=== PATIENT | male | born 1990 | race Two or more races ===

== ENCOUNTER 2020-07-15 10:40 | Emergency (ER) | payer SELFPAY ==
[~2020-07-15] VITALS: Ht 180.3 cm; Wt 86.2 kg
[2020-07-15] MEDS: SODIUM CHLORIDE 0.9% 1,000 ML IV ONE ×2 (11:00→12:49)
[2020-07-15] MEDS: MORPHINE SULFATE 4 MG/ML SYR/VIAL IV ONE ×2 (11:15→11:34)
[2020-07-15 11:24] LABS: Basophils # (auto) 0 10 ^3/uL (0-0.2); Basophils % (auto) 0.2 % (0.0-2.0); Eosinophils # (auto) 0 10 ^3/uL (0-0.8); Eosinophils % (auto) 0.1 % (0.0-7.0); Hematocrit 47.9 % (41.0-53.0); Hemoglobin 16.2 g/dL (13.5-17.5); Lymphocytes # (auto) 1.3 10 ^3/uL (0.4-5.4); Lymphocytes % (auto) 9.7 % (10.0-50.0); Mean Corpuscular Hemoglobin 31.3 pg (28.0-32.0); Mean Corpuscular Hgb Conc. 33.7 g/dL (32.0-36.0); Mean Corpuscular Volume 92.9 fL (80.0-100.0); Monocytes # (auto) 0.3 10 ^3/uL (0-1.3); Monocytes % (auto) 2.6 % (0.0-12.0); Neutrophils # (auto) 11.5 10 ^3/uL (1.6-8.6); Neutrophils % (auto) 87.4 % (37.0-80.0); Platelet Count (auto) 178 10^3/uL (140-450); Red Blood Cells 5.16 10^6/uL (4.5-5.90); Red Cell Distribution Width 13.2 % (11.8-14.3); White Blood Cell 13.1 10^3/uL (4.4-10.8)
[2020-07-15] MEDS: PROCHLORPERAZINE EDISYLATE 5 MG/ML 2ML VIAL IV ONE ×2 (11:34→12:49)
[2020-07-15 11:45] LABS: Albumin 4.5 g/dL (3.4-5.0); Anion Gap 6 (5-15); Blood Urea Nitrogen 9 mg/dL (7-18); Calcium 9.3 mg/dL (8.5-10.1); Carbon Dioxide 26 mmol/L (21-32); Chloride 107 mmol/L (98-107); Glucose 138 mg/dL (74-106); Lipase 85 U/L (73-393); Potassium 3.9 mmol/L (3.5-5.1); Sodium 139 mmol/L (136-145)
[2020-07-15 11:53] LABS: Alanine Aminotransferase 26 U/L (16-61); Alkaline Phosphatase 65 U/L (45-117); Aspartate Aminotransferase 20 U/L (15-37); Bilirubin, Total 0.5 mg/dL (0.2-1.0); GFR African American 127 mL/min; GFR Non-African American 105 mL/min; Total Protein 7.7 g/dL (6.4-8.2)
[2020-07-15] MEDS ORDERED: PROMETHAZINE HCL 25 MG/ML 1ML IV ONE (12:45)
[2020-07-15 13:35] VITALS: BP 116/66
== END 2020-07-15 13:35 | disposition home or self-care (01) ==
LOC: ER 10:40
DX: K29.00 Acute gastritis without bleeding (principal); F12.99 Cannabis use, unspecified with unspecified cannabis-induced disorder; R73.9 Hyperglycemia, unspecified; E86.0 Dehydration; R11.10 Vomiting, unspecified
CPT/HCPCS: 36415; 71045; 74176; 80053; 83690; 84484; 85025; 96361; 96374; 96375; 99285; J0780; J2270; J2550; J7030

== ENCOUNTER 2021-04-06 22:32 | Emergency (ER) | payer MEDICAID, OTHER ==
[~2021-04-06] VITALS: Ht 180.3 cm; Wt 86.2 kg
[2021-04-06 23:33] LABS: Eosinophils # (auto) 0.1 10 ^3/uL (0-0.8); Hemoglobin 17.8 g/dL (13.5-17.5); Monocytes # (auto) 0.9 10 ^3/uL (0-1.3); Nucleated Red Blood Cells % 0.1 %
[2021-04-06 23:34] LABS: Basophils # (auto) 0.1 10 ^3/uL (0-0.2); Basophils % (auto) 0.5 % (0.0-2.0); Eosinophils % (auto) 0.8 % (0.0-7.0); Hematocrit 49.9 % (41.0-53.0); Lymphocytes % (auto) 29.1 % (10.0-50.0); Mean Corpuscular Hemoglobin 32.2 pg (28.0-32.0); Mean Corpuscular Hgb Conc. 35.8 g/dL (32.0-36.0); Mean Corpuscular Volume 90.1 fL (80.0-100.0); Monocytes % (auto) 8.6 % (0.0-12.0); Neutrophils # (auto) 6.4 10 ^3/uL (1.6-8.6); Red Blood Cells 5.54 10^6/uL (4.5-5.90); Red Cell Distribution Width 13.2 % (11.8-14.3); White Blood Cell 10.5 10^3/uL (4.4-10.8)
[2021-04-06 23:57] LABS: Albumin 4.6 g/dL (3.4-5.0); Calcium 9.5 mg/dL (8.5-10.1); Potassium 3.3 mmol/L (3.5-5.1)
[2021-04-07 00:01] LABS: Total Protein 8.2 g/dL (6.4-8.2)
[2021-04-07] MEDS ORDERED: ALUM & MAG HYDROX-SIMETH LIQ(MAALOX) 30 ML PO ONE (00:30)
[2021-04-07] MEDS ORDERED: DONNATAL 5ml ORAL Elix (BELLADONNA ALK-PHENOBARB) PO ONE (00:30)
[2021-04-07] MEDS ORDERED: SODIUM CHLORIDE 0.9% 1,000 ML IV ONE (00:30)
[2021-04-07] MEDS ORDERED: LIDOCAINE VISCOUS 2% 15ML UD PO ONE (00:30)
[2021-04-07] MEDS ORDERED: POTASSIUM CHL 20 Meq TABLET PO ONE (00:45)
[2021-04-07 01:25] VITALS: BP 122/77
== END 2021-04-07 02:06 | disposition home or self-care (01) ==
LOC: ER 22:32
DX: K29.70 Gastritis, unspecified, without bleeding (principal); R11.2 Nausea with vomiting, unspecified; K21.9 Gastro-esophageal reflux disease without esophagitis
CPT/HCPCS: 36415; 80053; 83690; 84484; 85025; 93005; 96360; 99284; J7030; 85049

== ENCOUNTER 2021-04-10 20:50 | Emergency (ER) | payer MEDICAID, OTHER ==
[~2021-04-10] VITALS: Ht 180.3 cm; Wt 86.2 kg
[2021-04-10 22:27] LABS: Basophils # (auto) 0.1 10 ^3/uL (0-0.2); Basophils % (auto) 0.5 % (0.0-2.0); Eosinophils # (auto) 0 10 ^3/uL (0-0.8); Eosinophils % (auto) 0.2 % (0.0-7.0); Hematocrit 48.7 % (41.0-53.0); Hemoglobin 17.1 g/dL (13.5-17.5); Lymphocytes % (auto) 13.3 % (10.0-50.0); Mean Corpuscular Hgb Conc. 35.2 g/dL (32.0-36.0); Mean Corpuscular Volume 90.8 fL (80.0-100.0); Monocytes # (auto) 0.9 10 ^3/uL (0-1.3); Monocytes % (auto) 6.1 % (0.0-12.0); Neutrophils % (auto) 79.9 % (37.0-80.0); Nucleated Red Blood Cells % 0.1 %; Red Blood Cells 5.36 10^6/uL (4.5-5.90); Red Cell Distribution Width 13.2 % (11.8-14.3)
[2021-04-10 22:40] LABS: Alanine Aminotransferase 33 U/L (16-61); Albumin 4.3 g/dL (3.4-5.0); Anion Gap 7 (5-15); Aspartate Aminotransferase 18 U/L (15-37); BUN/Creatinine Ratio 8.2; Blood Urea Nitrogen 8 mg/dL (7-18); Calcium 9.3 mg/dL (8.5-10.1); Carbon Dioxide 28 mmol/L (21-32); Chloride 102 mmol/L (98-107); GFR African American 114 mL/min; GFR Non-African American 94 mL/min; Glucose 113 mg/dL (74-106); Potassium 4.8 mmol/L (3.5-5.1); Sodium 137 mmol/L (136-145)
[2021-04-10 22:45] LABS: Alkaline Phosphatase 69 U/L (45-117); Bilirubin, Total 0.7 mg/dL (0.2-1.0); Total Protein 7.9 g/dL (6.4-8.2)
[2021-04-10] MEDS ORDERED: SODIUM CHLORIDE 0.9% 1,000 ML IV ONE (23:45)
[2021-04-10] MEDS ORDERED: MORPHINE SULF INJ 2 MG/ML SYRINGE 1ML IV ONE (23:45)
[2021-04-10] MEDS ORDERED: ONDANSETRON HCL 4 MG/2 ML VIAL IV ONE (23:45)
[2021-04-10] MEDS ORDERED: PANTOPRAZOLE 40 MG/10 ML VIAL INJ IV ONE (23:45)
[2021-04-11] MEDS ORDERED: metroNIDAZOLE 500MG/100ML 100 ML IV ONE (01:30)
[2021-04-11] MEDS ORDERED: cefTRIAXone 1GM/50ML D5W 50 ML IV ONE (01:30)
[2021-04-11 02:00] VITALS: BP 106/63
== END 2021-04-11 03:25 | disposition home or self-care (01) ==
LOC: ER 20:54
DX: K52.9 Noninfective gastroenteritis and colitis, unspecified (principal); K21.9 Gastro-esophageal reflux disease without esophagitis
CPT/HCPCS: 36415; 71045; 74176; 80053; 83880; 84484; 85025; 85049; 93005; 96361; 96365; 96368; 96375; 99285; C9113; J0696; J2270; J2405; J3490

== ENCOUNTER 2021-05-29 05:48 | Emergency (ER) | payer MEDICAID, OTHER ==
[~2021-05-29] VITALS: Ht 180.3 cm; Wt 81.6 kg
[2021-05-29 05:50] VITALS: BP 124/80
[2021-05-29] MEDS ORDERED: MORPHINE SULFATE 4 MG/ML SYR/VIAL IV ONE (07:45)
[2021-05-29] MEDS ORDERED: PROCHLORPERAZINE EDISYLATE 5 MG/ML 2ML VIAL IV ONE (07:45)
[2021-05-29] MEDS ORDERED: SODIUM CHLORIDE 0.9% 1,000 ML IV ONE ×2 (07:45)
[2021-05-29 08:06] LABS: Albumin 4.6 g/dL (3.4-5.0); Calcium 10.2 mg/dL (8.5-10.1)
[2021-05-29 08:09] LABS: Basophils # (auto) 0 10 ^3/uL (0-0.2); Basophils % (auto) 0.3 % (0.0-2.0); Bilirubin, Total 0.8 mg/dL (0.2-1.0); Eosinophils # (auto) 0 10 ^3/uL (0-0.8); Eosinophils % (auto) 0.1 % (0.0-7.0); Hematocrit 47.8 % (41.0-53.0); Hemoglobin 17.1 g/dL (13.5-17.5); Lymphocytes # (auto) 2.2 10 ^3/uL (0.4-5.4); Mean Corpuscular Hemoglobin 32.1 pg (28.0-32.0); Mean Corpuscular Hgb Conc. 35.7 g/dL (32.0-36.0); Monocytes # (auto) 0.8 10 ^3/uL (0-1.3); Monocytes % (auto) 6.4 % (0.0-12.0); Neutrophils # (auto) 9.6 10 ^3/uL (1.6-8.6); Neutrophils % (auto) 76.2 % (37.0-80.0); Nucleated Red Blood Cells % 0.1 %; Red Blood Cells 5.31 10^6/uL (4.5-5.90); Red Cell Distribution Width 13.1 % (11.8-14.3); Total Protein 8.3 g/dL (6.4-8.2); White Blood Cell 12.6 10^3/uL (4.4-10.8)
== END 2021-05-29 13:47 | disposition left against medical advice (07) ==
LOC: ER 05:50
DX: R10.13 Epigastric pain (principal); R11.2 Nausea with vomiting, unspecified; K21.9 Gastro-esophageal reflux disease without esophagitis
CPT/HCPCS: 36415; 74176; 80053; 83605; 83690; 83735; 85025; 87040

== ENCOUNTER 2023-09-22 14:00 | Inpatient (IN) | payer MEDICAID ==
[~2023-09-22] VITALS: Ht 180.3 cm; Wt 76.8 kg
[2023-09-22] MEDS ORDERED: SODIUM CHLORIDE 0.9% 1,000 ML IVB ONE (15:00)
[2023-09-22] MEDS ORDERED: ONDANSETRON HCL 4 MG/2 ML VIAL IV ONE (15:00)
[2023-09-22] MEDS ORDERED: PANTOPRAZOLE 80 MG in SODIUM CHL 0.9% 100 ML IV ONE (15:00)
[2023-09-22] MEDS ORDERED: MORPHINE SULFATE 4 MG/ML SYR/VIAL IV ONE (15:00)
[2023-09-22] MEDS ORDERED: PANTOPRAZOLE 40mg/50ML NS AE 50 ML IV ONE (15:00)
[2023-09-22 15:30] LABS: Basophils # (auto) 0 10 ^3/uL (0-0.2); Basophils % (auto) 0.2 % (0.0-2.0); Eosinophils # (auto) 0 10 ^3/uL (0-0.8); Hematocrit 46.2 % (41.0-53.0); Hemoglobin 15.6 g/dL (13.5-17.5); Lymphocytes # (auto) 0.7 10 ^3/uL (0.4-5.4); Lymphocytes % (auto) 7.5 % (10.0-50.0); Mean Corpuscular Hemoglobin 31.2 pg (28.0-32.0); Mean Corpuscular Hgb Conc. 33.8 g/dL (32.0-36.0); Mean Corpuscular Volume 92.4 fL (80.0-100.0); Monocytes # (auto) 0.1 10 ^3/uL (0-1.3); Monocytes % (auto) 1.6 % (0.0-12.0); Neutrophils # (auto) 8.3 10 ^3/uL (1.6-8.6); Neutrophils % (auto) 90.7 % (37.0-80.0); Nucleated Red Blood Cells % 0.1 %; Red Cell Distribution Width 13.5 % (11.8-14.3); White Blood Cell 9.2 10^3/uL (4.4-10.8)
[2023-09-22 15:50] VITALS: PULSE 60; RESP 12; O2SAT 97
[2023-09-22 15:50] LABS: Alanine Aminotransferase 13 U/L (7-40); Alkaline Phosphatase 54 U/L (46-116); Anion Gap 10 (5-15); Aspartate Aminotransferase 11 U/L (13-40); Bilirubin, Total 0.6 mg/dL (0.2-1.0); Blood Urea Nitrogen 6 mg/dL (9-23); Calcium 9.8 mg/dL (8.7-10.4); Carbon Dioxide 25 mmol/L (20-30); Chloride 106 mmol/L (98-107); Glucose 130 mg/dL (74-106); Lipase 28 U/L (12-53); Potassium 3.6 mmol/L (3.5-5.1); Sodium 141 mmol/L (136-145); Total Protein 7.4 g/dL (5.7-8.2)
[2023-09-22 15:51] LABS: Blood Alcohol < 3.0 mg/dL (<10); Magnesium 1.9 mg/dL (1.6-2.6)
[2023-09-22 15:53] LABS: INR 1.03 (0.9-1.15); Partial Thromboplastin Time 27.1 SEC (24.5-34.5); Prothrombin Time 10.8 sec (9.3-11.8)
[2023-09-22] MEDS ORDERED: IOHEXOL 300 MG/ML 100ML BOTTLE IJ ONE (17:42)
[2023-09-22] MEDS ORDERED: MORPHINE SULFATE INJ 2 MG/ml SYRG IV PRN (18:30)
[2023-09-22] MEDS: PANTOPRAZOLE 40mg/50ML NS AE 50 ML IV SCH ×2 (18:30→23:18)
[2023-09-22] MEDS ORDERED: DOCUSATE SOD 100 MG CAP PO PRN (18:30)
[2023-09-22] MEDS ORDERED: ONDANSETRON HCL 4 MG/2 ML VIAL IV PRN (18:30)
[2023-09-22] MEDS: SODIUM CHLORIDE 0.9% 1,000 ML IV SCH (18:57)
[2023-09-22 19:06] LABS: Amphetamine Screen, Urine Neg (NEGATIVE); Barbiturate Scree,Urine Neg (NEGATIVE); Benzodiazephine Screen, Urine Neg (NEGATIVE); Cannabinoid Screen, Urine Pos (NEGATIVE); Cocaine Screen, Urine Neg (NEGATIVE); Opiate Scree,Urine Neg (NEGATIVE); Phencyclidine Screen, Urine Neg (NEGATIVE)
[2023-09-22 19:14] LABS: Urine Amorphous Crystal FEW /hpf (None Seen); Urine Bacteria NONE SEEN /hpf (None Seen); Urine Blood Negative /uL (Negative); Urine Clarity HAZY (Clear); Urine Color Yellow (Yellow); Urine Mucus FEW (None Seen); Urine Protein, UAD 1+ (Negative); Urine Specific Gravity 1.023 (1.001-1.035); Urine Urobilinogen Normal (Negative); Urine WBC 4 /hpf (0 - 3); Urine pH 8.5 (5.0-8.0)
[2023-09-22 19:30] VITALS: PULSE 55; RESP 14; O2SAT 100
[2023-09-22 22:47] VITALS: BP 130/76; PULSE 54; RESP 18; TEMP 99.4; O2SAT 99
[2023-09-22 22:54] LABS: Hematocrit 42.9 % (41.0-53.0); Hemoglobin 14.4 g/dL (13.5-17.5)
[2023-09-23] VITALS (7 sets, daily range): BP systolic 104–130; BP diastolic 64–76; PULSE 53–58; RESP 17–20; TEMP 97.4–99.4; O2SAT 96–100
[2023-09-23] MEDS: SODIUM CHLORIDE 0.9% 1,000 ML IV SCH ×2 (02:52→12:00)
[2023-09-23] MEDS: PANTOPRAZOLE 40mg/50ML NS AE 50 ML IV SCH ×3 (03:00→14:30)
[2023-09-23 06:41] LABS: Basophils # (auto) 0 10 ^3/uL (0-0.2); Basophils % (auto) 0.1 % (0.0-2.0); Eosinophils # (auto) 0 10 ^3/uL (0-0.8); Eosinophils % (auto) 0.1 % (0.0-7.0); Hematocrit 43.3 % (41.0-53.0); Hemoglobin 14.6 g/dL (13.5-17.5); Lymphocytes # (auto) 1.9 10 ^3/uL (0.4-5.4); Lymphocytes % (auto) 20.9 % (10.0-50.0); Mean Corpuscular Hemoglobin 31.4 pg (28.0-32.0); Mean Corpuscular Hgb Conc. 33.7 g/dL (32.0-36.0); Mean Corpuscular Volume 93.4 fL (80.0-100.0); Monocytes # (auto) 0.6 10 ^3/uL (0-1.3); Monocytes % (auto) 7.1 % (0.0-12.0); Neutrophils # (auto) 6.5 10 ^3/uL (1.6-8.6); Neutrophils % (auto) 71.8 % (37.0-80.0); Nucleated Red Blood Cells % 0.1 %; Red Blood Cells 4.63 10^6/uL (4.5-5.90); Red Cell Distribution Width 13.8 % (11.8-14.3); White Blood Cell 9.1 10^3/uL (4.4-10.8)
[2023-09-23 08:55] LABS: Albumin 4.3 g/dL (3.2-4.8); Alkaline Phosphatase 45 U/L (46-116); Anion Gap 11 (5-15); Aspartate Aminotransferase 8 U/L (13-40); BUN/Creatinine Ratio 8.5 (10.0-20.0); Bilirubin, Total 0.7 mg/dL (0.2-1.0); Blood Urea Nitrogen 6 mg/dL (9-23); Carbon Dioxide 20 mmol/L (20-30); Chloride 109 mmol/L (98-107); Glucose 107 mg/dL (74-106); Potassium 3.6 mmol/L (3.5-5.1); Sodium 140 mmol/L (136-145); Total Protein 6.4 g/dL (5.7-8.2)
[2023-09-23 09:11] LABS: Alanine Aminotransferase < 9 U/L (7-40)
[2023-09-23 11:58] LABS: Hematocrit 41.8 % (41.0-53.0); Hemoglobin 14.2 g/dL (13.5-17.5)
[2023-09-23] MEDS ORDERED: cefTRIAXone 1GM/50ML D5W 50 ML IV ONE (16:30)
[2023-09-23] MEDS: SUCRALFATE 1 GM/10 ML ORAL SUSP PO SCH ×2 (16:50→21:26)
[2023-09-23] MEDS: PANTOPRAZOLE 40 MG/10 ML VIAL INJ IV SCH (21:26)
[2023-09-23 22:13] LABS: Hematocrit 41.2 % (41.0-53.0); Hemoglobin 13.8 g/dL (13.5-17.5)
[2023-09-24 05:00] VITALS: BP 111/66; PULSE 92; RESP 18; TEMP 98.4; O2SAT 100
[2023-09-24] MEDS: SUCRALFATE 1 GM/10 ML ORAL SUSP PO SCH ×3 (05:55→18:19)
[2023-09-24 08:00] VITALS: PULSE 55; RESP 18
[2023-09-24] MEDS ORDERED: cefTRIAXone 1GM/50ML D5W 50 ML IV SCH (09:00)
[2023-09-24 10:00] VITALS: BP 111/70; PULSE 55; RESP 18; TEMP 98.2; O2SAT 99
[2023-09-24] MEDS: PANTOPRAZOLE 40 MG/10 ML VIAL INJ IV SCH ×2 (11:23→18:18)
[2023-09-24 13:14] VITALS: BP 106/69; PULSE 57; RESP 18; TEMP 98.1; O2SAT 96
[2023-09-24] MEDS ORDERED: PANT40TA2 PO (17:24)
[2023-09-24] MEDS ORDERED: SUCR1TAB22 PO (17:24)
== END 2023-09-24 18:30 | disposition home or self-care (01) | DRG 253 ==
LOC: ER 14:00 → OVERFLOW 18:30 → CENTRAL 22:44
PROVIDERS: ADMIT Nurse Practitioner Family; ATTEND Internal Medicine
DX: K92.2 Gastrointestinal hemorrhage, unspecified (principal); K21.9 Gastro-esophageal reflux disease without esophagitis; N39.0 Urinary tract infection, site not specified; Z80.52 Family history of malignant neoplasm of bladder
CPT/HCPCS: 36415; 74177; 80053; 80307; 80320; 81001; 83605; 83690; 83735; 85014; 85018; 85025; 85610; 85730; 86850; 86900; 86901; C9113; G0378; J2405